=== PATIENT | female | born 1960 | race Two or more races ===

== ENCOUNTER → 2016-12-01 | Outpatient (CLI) | payer OTHER ==
[~2016-12-01] MED LIST: ISOVUE-370 76% 100ML VIAL (Q9967) As Ordered ONE
--- NOTE | 2016-12-01 10:53 | REP ---
CT ABDOMEN PELVIS WITHOUT AND WITH IV CONTRAST: Without oral contrast. CT urogram. HISTORY: Microscopic hematuria. CT CONTRAST DOSE: 100 mL of intravenous Isovue 370. CT FINDINGS: Digital preliminary siphoner radiographs show surgical clips in the right inguinal soft tissues. Bowel gas pattern is unremarkable. The lung bases are clear. No pleural effusion or upper abdominal ascites is seen. The liver and the spleen are normal in size. There is a small nonenhancing cyst in the left lobe of the liver 6 mm in diameter. No other focal liver lesion is seen. The spleen enhances homogeneously. There is an accessory splenule in the left upper quadrant. No pancreatic lesion is appreciated. There are tiny gravel like calculi in the dependent portion the gallbladder. There is a 14 mm cyst in the mid pole of the left kidney. A tiny 5 mm cyst is seen in the right kidney. No renal mass lesion is seen. No intrarenal calculus is observed. The kidneys enhance symmetrically. There is mild vascular calcification at the origin of each renal artery. No filling defect is seen in the collecting system or ureters. No bladder mass seen. Right inguinal surgical clips noted. There is diverticulosis of the left colon in the region of the splenic flexure without CT evidence of diverticulitis. Small and large intestinal bowel loops are unremarkable. No uterine or significant ovarian abnormality is seen. A normal appendix is seen medial to the cecum. No abdominal wall defect is seen. No bony destructive lesion. IMPRESSION: Small bilateral renal cysts. No urinary tract calculus seen. Small cyst in the left lobe of the liver. Otherwise unremarkable. Signed by Job Fang MD 12/01/2016 01:18 P
== END ==
LOC: M RAD 08:39
PROVIDERS: ATTEND Urology
DX: R31.29 Other microscopic hematuria (principal)
CPT/HCPCS: 74178; Q9967

== ENCOUNTER → 2019-03-16 | Outpatient (REF) | payer OTHER | LOC: M LAB LCGH 12:11 | PROVIDERS: ATTEND Nurse Practitioner Family | DX: Z12.4 Encounter for screening for malignant neoplasm of cervix (principal) | CPT/HCPCS: 87624; G0123 ==

== ENCOUNTER → 2019-10-20 | Outpatient (CLI) | payer OTHER ==
[~2019-10-20] MED LIST changes: +IBUP200C25 PO; -ISOVUE-370 76% 100ML VIAL (Q9967) As Ordered ONE; +MELA5CAP2 PO; +MULTCAP PO
== END ==
LOC: M LABSMTC 13:00
PROVIDERS: ATTEND Anesthesiology
DX: Z11.59 Encounter for screening for other viral diseases (principal)

== ENCOUNTER 2019-10-25 10:14 | Day surgery (SDC) | payer OTHER ==
[~2019-10-25] VITALS: Ht 149.9 cm; Wt 54.8 kg
[~2019-10-25 10:14] MED LIST changes: +NS 1,000 ML IV ONE
[2019-10-25] MEDS ORDERED: fentaNYL 100 MCG/2 ML INJECTION (J3010) As Ordered ONE (12:16)
[2019-10-25] MEDS ORDERED: LIDOCAINE 2% 100MG/5ML SDV (FOR ANES.) As Ordered ONE (12:16)
[2019-10-25] MEDS ORDERED: propofoL 200 MG/20 ML VIAL As Ordered ONE (12:16)
[2019-10-25] MEDS ORDERED: ePHEDrine SULFATE 25 MG/5 ML(5MG/ML) SYRINGE As Ordered ONE (12:28)
[2019-10-25 13:00] VITALS: BP 128/75
--- NOTE | 2019-11-02 11:31 | ROOR ---
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 Requesting Provider: Medicines: Monitored Anesthesia Care Complications: No immediate complications. Procedure: Pre-Anesthesia Assessment: - The heart rate, respiratory rate, oxygen saturations, blood pressure, adequacy of pulmonary ventilation, and response to care were monitored throughout the procedure. The Colonoscope was introduced through the anus and advanced to the cecum, identified by appendiceal orifice and ileocecal valve. The colonoscopy was performed without difficulty. The patient tolerated the procedure well. The quality of the bowel preparation was excellent. Findings: The perianal and digital rectal examinations were normal. Non-bleeding internal hemorrhoids were found during retroflexion. The hemorrhoids were small and Grade I (internal hemorrhoids that do not prolapse). Multiple small and large-mouthed diverticula were found in the recto-sigmoid colon, sigmoid colon and descending colon. A diminutive polyp was found at 20 cm proximal to the anus. The polyp was sessile. The polyp was removed with a cold biopsy forceps. Resection and retrieval were complete. The exam was otherwise without abnormality on direct and retroflexion views. Impression: - Non-bleeding internal hemorrhoids. - Diverticulosis in the recto-sigmoid colon, in the sigmoid colon and in the descending colon. - One diminutive polyp at 20 cm proximal to the anus, removed with a cold biopsy forceps. Resected and retrieved. - The examination was otherwise normal on direct and retroflexion views. - The exam was otherwise normal to the cecum. Recommendation: - Patient has a contact number available for emergencies. The signs and symptoms of potential delayed complications were discussed with the patient. Return to normal activities tomorrow. Written discharge instructions were provided to the patient. - High fiber diet. - Discharge patient to home. - Continue present medications. - Await pathology results. - Telephone GI clinic for pathology results in 1 week. - Repeat colonoscopy in 10 years for surveillance. - Return to referring physician. - The findings and recommendations were discussed with the patient. Charles Saba MD Charles Saba MD 10/25/2019 12:41:26 PM Number of Addenda: 0 Note Initiated On: 10/25/2019 10:57 AM Estimated Blood Loss: Estimated blood loss: none.
== END 2019-10-25 13:14 | disposition home or self-care (01) ==
LOC: M OPP 10:14
PROVIDERS: ATTEND Internal Medicine Gastroenterology
DX: Z12.11 Encounter for screening for malignant neoplasm of colon (principal); K64.0 First degree hemorrhoids; K63.5 Polyp of colon; K57.30 Diverticulosis of large intestine without perforation or abscess without bleeding; K22.8 Other specified diseases of esophagus; K44.9 Diaphragmatic hernia without obstruction or gangrene; R12 Heartburn; Z79.899 Other long term (current) drug therapy
CPT/HCPCS: 43239; 45380; 88305; J3010

== ENCOUNTER → 2020-08-22 | Outpatient (CLI) | payer OTHER ==
[~2020-08-22] MED LIST changes: -NS 1,000 ML IV ONE
--- NOTE | 2020-08-22 13:03 | DEXAMM ---
INDICATION: OSTEOPOROSIS. COMPARISON: Comparison densitometry exam is are from November 02, 2017 and July 16, 2006.. TECHNIQUE: Bone density was measured using dual-energy x-ray absorptionmetry (DEXA). FINDINGS: AP SPINE L1-L4 BMD 0.880 g/cm2 Young Adult T-Score -2.5 Age Matched Z-Score -1.2. LT FEMUR, TOTAL BMD 0.741 g/cm2 Young Adult T-Score -2.1 Age Matched Z-Score -1.1. LT NECK BMD 0.773 g/cm2 Young Adult T-Score -1.9 Age Matched Z-Score -0.6. RT FEMUR, TOTAL BMD 0.748 g/cm2 Young Adult T-Score -2.1 Age Matched Z-Score -1.0. RT NECK BMD 0.710 g/cm2 Young Adult T-Score -2.4 Age Matched Z-Score -1.0. IMPRESSION: There is low bone density of the spine. There is low bone density of the left hip. There is low bone density of the right hip. The density of the spine has decreased 5.4% since the initial exam on July 16, 2006. The density of the spine increased 0.2% since most recent exam on November 02, 2017. The density of the left hip has decreased 3.5% since initial exam on July 16, 2006. The density of the left hip has decreased 2.9% since most recent exam on November 02, 2017. The density of the right hip has decreased 8.5% since the initial exam on July 16, 2006. The density of the right hip has decreased 3.7% since the most recent exam on November 02, 2017. FOLLOW-UP: Recommendation for the next bone density exam: 2 years. <Electronically signed by Jose Armando Fang > 08/22/20 [id number]
== END ==
LOC: M WHC 10:13
PROVIDERS: ATTEND Internal Medicine
DX: M80.80XS Other osteoporosis with current pathological fracture, unspecified site, sequela (principal)

== ENCOUNTER 2020-11-28 08:14 | Emergency (ER) | payer OTHER ==
[~2020-11-28] VITALS: Ht 149.9 cm; Wt 49.0 kg
[2020-11-28] MEDS ORDERED: METH4PACK (08:26)
[2020-11-28] MEDS ORDERED: TRAM50TA2 PO (08:26)
[2020-11-28] MEDS ORDERED: KETO10TAB (08:26)
[2020-11-28 10:12] LABS: BASO % 0.2 % (0.0-1.0); EOS % 0.1 % (0.0-3.0); HEMATOCRIT 45.5 % (36.0-47.0); LYMPH # 2.1 10^3/uL (1.5-5.0); LYMPH % 16.9 % (24.0-44.0); MEAN CORPUSCULAR HEMOGLOBIN 31.9 pg (27.0-33.0); MEAN CORPUSCULAR VOLUME 96.8 fl (80.0-96.0); MONO # 0.8 10^3/uL (0.0-0.8); MONO % 6.1 % (2.0-8.0); NEUTROPHILS # 9.6 10^3/uL (1.5-8.5); NEUTROPHILS % 76.1 % (36.0-66.0); PLATELET COUNT, AUTOMATED 215 10^3/uL (150-450); WHITE BLOOD COUNT 12.6 10^3/uL (4.0-10.0)
[2020-11-28 10:32] LABS: ERYTHROCYTE SEDIMENTATION RATE 7 mm/hr (0-30)
[2020-11-28 10:46] LABS: BLOOD UREA NITROGEN 21 MG/DL (7-18); CALCIUM LEVEL 8.9 MG/DL (8.8-10.2); CARBON DIOXIDE LEVEL 25 MEQ/L (21-32); CHLORIDE LEVEL 111 MEQ/L (98-107); CREATININE FOR GFR 0.73 MG/DL (0.55-1.30); GLOMERULAR FILTRATION RATE > 60.0 (>45); GLUCOSE, FASTING 90 MG/DL (70-100); POTASSIUM SERUM 4.7 MEQ/L (3.5-5.1); SODIUM LEVEL 140 MEQ/L (136-145)
[2020-11-28] MEDS ORDERED: KETOROLAC 30 MG/ML 1ML VIAL IV ONE (11:15)
--- NOTE | 2020-11-28 11:34 | REP ---
INDICATION: pain and tinglinf L temporal and l side of face COMPARISON: None. TECHNIQUE: Axial noncontrast images from the skull base to the thoracic inlet with coronal reformations. This CT examination was performed using the following dose reduction techniques: Automated exposure control, adjustment of mA and/or kv according to the patient's size, and use of iterative reconstruction technique. FINDINGS: Age-related changes are appreciated. The ventricles and sulci are symmetric. Soliman-white differentiation is maintained. There is no evidence for acute intracranial hemorrhage, mass/mass effect, pathology or infarction. No extra-axial fluid collection. Calvarium is intact. Paranasal sinuses and mastoid air cells are clear. IMPRESSION: Age-related changes. No acute intracranial hemorrhage, infarction, or mass/mass effect. <Electronically signed by Rancho Saeed > 11/28/20 [id number]
[2020-11-28] MEDS ORDERED: carBAMazepine XR 100 MG TAB PO ONE (12:00)
[2020-11-28] MEDS ORDERED: CARB100T PO (12:40)
[2020-11-28] MEDS ORDERED: CARB1CAP3 PO (12:40)
[2020-11-28 13:19] VITALS: BP 136/79
== END 2020-11-28 13:21 | disposition home or self-care (01) ==
LOC: M ED 08:14
DX: G50.0 Trigeminal neuralgia (principal); G43.909 Migraine, unspecified, not intractable, without status migrainosus; R42 Dizziness and giddiness; R11.0 Nausea; Z79.899 Other long term (current) drug therapy
CPT/HCPCS: 36415; 70450; 80048; 85025; 85652; 86140; 96374; 99284; J1885

== ENCOUNTER → 2022-06-27 | Outpatient (REF) | payer OTHER ==
[~2022-06-27] MED LIST changes: +CARB100T PO; +CARB1CAP3 PO; +KETO10TAB; +METH4PACK; +TRAM50TA2 PO
== END ==
LOC: M LAB REF 15:51
PROVIDERS: ATTEND Surgery
DX: L57.0 Actinic keratosis (principal)

== ENCOUNTER → 2022-10-07 | Outpatient (CLI) | payer OTHER ==
[~2022-10-07] MED LIST changes: +METHACHOLINE KIT INH ONE
== END ==
LOC: M CARPUL 09:32
PROVIDERS: ATTEND Internal Medicine Pulmonary Disease
DX: R06.02 Shortness of breath (principal)
CPT/HCPCS: 88738; 94010; 94070; 94726; 94729; 95070; J7674

== ENCOUNTER → 2022-10-15 | Outpatient (CLI) | payer OTHER ==
[~2022-10-15] MED LIST changes: -METHACHOLINE KIT INH ONE
== END ==
LOC: M RAD 07:24
PROVIDERS: ATTEND Internal Medicine Pulmonary Disease
DX: R06.02 Shortness of breath (principal)

== ENCOUNTER 2023-10-21 12:09 | Day surgery (SDC) | payer OTHER ==
[~2023-10-21] VITALS: Ht 149.9 cm; Wt 72.6 kg
[~2023-10-21 12:09] MED LIST changes: +ALBU2TAB13 PO; +ASPI81TA26 PO; +CALC600T61 PO; -CARB100T PO; +CARB100T11 PO; +CARB20TA PO; +COQ150CH PO; +FEXO-111 PO; +FLUT1BLS2 IH; +GABA-282 PO; +LIDOCAINE 2% 100MG/5ML SDV (FOR ANES.) As Ordered ONE; +MAGN400C2 PO; +MECL-209 PO; +MIRT-84 PO; +NS 1,000 ML IV ONE; +PANT20TA6 PO; +RIZA10TA58 PO; +ROSU40TA63 PO; +VENTAER INH; +VITA100065 PO; +propofoL 200 MG/20 ML VIAL As Ordered ONE
[2023-10-21] MEDS: NS 1,000 ML IV ONE (12:43)
[2023-10-21 13:49] VITALS: BP 120/67; O2SAT 98
== END 2023-10-21 13:49 | disposition home or self-care (01) ==
LOC: M OPP 12:09
PROVIDERS: ATTEND Internal Medicine Gastroenterology
DX: K44.9 Diaphragmatic hernia without obstruction or gangrene (principal); K20.90 Esophagitis, unspecified without bleeding; R10.13 Epigastric pain; Z87.891 Personal history of nicotine dependence; Z79.02 Long term (current) use of antithrombotics/antiplatelets; Z79.1 Long term (current) use of non-steroidal anti-inflammatories (NSAID); Z79.82 Long term (current) use of aspirin; Z79.891 Long term (current) use of opiate analgesic; Z79.899 Other long term (current) drug therapy